=== PATIENT | male | born 1995 | race Caucasian/White ===

== ENCOUNTER 2016-12-05 17:20 | Emergency (ER) | payer OTHER ==
[~2016-12-05] VITALS: Ht 188 cm; Wt 72.6 kg
[2016-12-05 17:20] VITALS: BP_SYST 142
[~2016-12-05 17:20] MED LIST: STRATTERA PO
[2016-12-05] MEDS ORDERED: NACL 0.9% 1,000 ML IV ONE (17:38)
[2016-12-05] MEDS ORDERED: KETOROLAC TROMETHAMINE 30 MG VIAL IVP ONE (17:45)
[2016-12-05] MEDS ORDERED: PROMETHAZINE HCL 25 MG/ML AMP IVP ONE ×2 (17:45→19:45)
[2016-12-05 17:59] LABS: BASOPHILS # (AUTO) 0.1 K/uL (0.0-0.2); BASOPHILS % (AUTO) 0.8 % (0.0-2.0); EOSINOPHILS % (AUTO) 0.1 % (0.0-4.0); HEMATOCRIT 50.2 % (36-54); HEMOGLOBIN 16.6 g/dL (14.0-18.0); LYMPHOCYTES # (AUTO) 0.9 K/uL (1.0-5.5); LYMPHOCYTES % (AUTO) 7.7 % (20.5-51.5); MEAN CORPUSCULAR HEMOGLOBIN 30 pg (27-31); MEAN CORPUSCULAR HGB CONC 33 % (32-36); MEAN CORPUSCULAR VOLUME 92 fL (79.0-98.0); MONOCYTES # (AUTO) 0.7 K/uL (0.0-1.0); MONOCYTES % (AUTO) 5.8 % (1.7-9.3); NEUTROPHILS # (AUTO) 10.4 K/uL (1.8-7.7); NEUTROPHILS % (AUTO) 85.6 % (40.0-70.0); PLATELET COUNT (AUTO) 258 K/uL (130-430); RED BLOOD CELL COUNT(AUTO) 5.49 MIL/uL (4.2-6.2); RED CELL DISTRIBUTION WIDTH 12.2 % (9.0-15.0); WHITE BLOOD COUNT (AUTO) 12.1 K/uL (4.5-11.0)
[2016-12-05 18:04] LABS: CALCIUM 9.6 mg/dL (8.4-11.0); CREATININE 1.09 mg/dL (0.55-1.30); POTASSIUM 3.6 mmol/L (3.5-5.1)
[2016-12-05 18:08] LABS: ALBUMIN 4.6 g/dL (3.4-4.8); TOTAL BILIRUBIN 0.9 mg/dL (0.0-1.0)
[2016-12-05] MEDS ORDERED: ONDANSETRON HCL 4 MG/2 ML VIAL IVP ONE (18:45)
[2016-12-05] MEDS ORDERED: fentaNYL CITRATE/PF 100 MCG/2 ML AMP IVP ONE (18:45)
[2016-12-05] MEDS ORDERED: ONDANSETRON HCL 4 MG/2 ML VIAL ONE (19:02)
[2016-12-05 19:40] VITALS: BP_SYST 138
[2016-12-06] MEDS ORDERED: ONDA4TAB22 PO (16:40)
== END 2016-12-05 19:40 | disposition home or self-care (01) ==
LOC: SED 17:20
DX: R10.11 Right upper quadrant pain (principal); R11.2 Nausea with vomiting, unspecified; Z90.49 Acquired absence of other specified parts of digestive tract
CPT/HCPCS: 36415; 76700; 80053; 83690; 85025; 96361; 96374; 96375; 96376; 99285; J1885; J2405; J2550; J3010; J7030

== ENCOUNTER 2016-12-06 12:22 | Inpatient (IN) | payer OTHER ==
[~2016-12-06] VITALS: Ht 188 cm; Wt 78.5 kg
[2016-12-06 12:56] VITALS: BP_SYST 136
[2016-12-06 13:25] LABS: BASOPHILS # (AUTO) 0.1 K/uL (0.0-0.2); EOSINOPHILS % (AUTO) 0.3 % (0.0-4.0); HEMATOCRIT 49.3 % (36-54); HEMOGLOBIN 16.1 g/dL (14.0-18.0); LYMPHOCYTES # (AUTO) 1.1 K/uL (1.0-5.5); LYMPHOCYTES % (AUTO) 7.2 % (20.5-51.5); MEAN CORPUSCULAR HEMOGLOBIN 30 pg (27-31); MEAN CORPUSCULAR HGB CONC 33 % (32-36); MEAN CORPUSCULAR VOLUME 93 fL (79.0-98.0); MONOCYTES # (AUTO) 0.7 K/uL (0.0-1.0); MONOCYTES % (AUTO) 4.9 % (1.7-9.3); NEUTROPHILS # (AUTO) 12.9 K/uL (1.8-7.7); NEUTROPHILS % (AUTO) 86.6 % (40.0-70.0); PLATELET COUNT (AUTO) 217 K/uL (130-430); RED BLOOD CELL COUNT(AUTO) 5.32 MIL/uL (4.2-6.2); RED CELL DISTRIBUTION WIDTH 12.5 % (9.0-15.0); WHITE BLOOD COUNT (AUTO) 14.8 K/uL (4.5-11.0)
[2016-12-06 13:43] LABS: CALCIUM 9.2 mg/dL (8.4-11.0); CREATININE 1.26 mg/dL (0.55-1.30); POTASSIUM 3.8 mmol/L (3.5-5.1)
[2016-12-06 13:51] LABS: ALBUMIN 4.1 g/dL (3.4-4.8); TOTAL BILIRUBIN 0.9 mg/dL (0.0-1.0)
[2016-12-06] MEDS ORDERED: NACL 0.9% 1,000 ML IV ONE (14:02)
[2016-12-06] MEDS ORDERED: DIPHENHYDRAMINE INJ 50 MG/ML VIAL IVP ONE (14:15)
[2016-12-06 15:12] LABS: BILIRUBIN,URINE NEGATIVE (NEGATIVE); BLOOD, URINE NEGATIVE (NEGATIVE); CLARITY/URINE CLEAR (CLEAR); COLOR,URINE YELLOW (YELLOW); GLUCOSE,URINE NEGATIVE (NEGATIVE); KETONES,URINE 2+ (NEGATIVE); LEUKOCYTE ESTERASE ,URINE NEGATIVE (NEGATIVE); NITRITE, URINE NEGATIVE (NEGATIVE); PROTEIN URINE NEGATIVE (NEGATIVE); UROBILINOGEN,URINE 0.2 (0.2-1.0)
[2016-12-06 15:22] LABS: BARBITURATE, URINE NEGATIVE (NEG <=200); BENZODIAZEPINE, URINE NEGATIVE (NEG <=150); CANNABINOID, URINE POSITIVE (NEG <=50); COCAINE, URINE NEGATIVE (NEG <=150); METHAMPHETAMINES SCREEN,URINE NEGATIVE (NEG <=500); OPIATE, URINE NEGATIVE (NEG <=100); PHENCYCLIDINE SCREEN,URINE NEGATIVE (NEG <=25); UR TRICYCLIC ANTIDEPRESSANTS NEGATIVE (NEG <=300); URINE AMPHETAMINE NEGATIVE (NEG <=500); URINE METHADONE NEGATIVE (NEG <=200); URINE OXYCODONE SCREEN NEGATIVE (NEG <=100); URINE PROPOXYPHENE SCREEN NEGATIVE (NEG <=300)
[2016-12-06] MEDS ORDERED: ONDANSETRON HCL 4 MG/2 ML VIAL IM PRN (16:30)
[2016-12-06] MEDS ORDERED: ONDA4TAB22 PO (16:40)
[2016-12-06 17:25] VITALS: BP_SYST 122
[2016-12-06] MEDS ORDERED: ONDANSETRON HCL 4 MG/2 ML VIAL IVP PRN (17:30)
[2016-12-06 19:15] VITALS: BP_SYST 125
[2016-12-07] MEDS ORDERED: DIPHENHYDRAMINE HCL 25 MG CAPSULE PO ONE
[2016-12-07 00:27] VITALS: BP_SYST 121
[2016-12-07] MEDS: HYDROcodone/ACETAMIN 5-325 MG TAB (NORCO/ VICODIN) PO PRN ×2 (02:01→21:51)
[2016-12-07] MEDS ORDERED: NACL 0.9% 1,000 ML IV SCH (02:30)
[2016-12-07 03:46] VITALS: BP_SYST 117
[2016-12-07 08:00] VITALS: BP_SYST 125
[2016-12-07 08:23] LABS: BASOPHILS # (AUTO) 0.1 K/uL (0.0-0.2); BASOPHILS % (AUTO) 0.8 % (0.0-2.0); EOSINOPHILS # (AUTO) 0.1 K/uL (0.0-0.4); EOSINOPHILS % (AUTO) 1.1 % (0.0-4.0); HEMOGLOBIN 14.9 g/dL (14.0-18.0); LYMPHOCYTES # (AUTO) 2.1 K/uL (1.0-5.5); LYMPHOCYTES % (AUTO) 22.5 % (20.5-51.5); MEAN CORPUSCULAR HEMOGLOBIN 31 pg (27-31); MEAN CORPUSCULAR HGB CONC 34 % (32-36); MEAN CORPUSCULAR VOLUME 93 fL (79.0-98.0); MONOCYTES # (AUTO) 0.9 K/uL (0.0-1.0); NEUTROPHILS # (AUTO) 6.3 K/uL (1.8-7.7); NEUTROPHILS % (AUTO) 66.6 % (40.0-70.0); PLATELET COUNT (AUTO) 196 K/uL (130-430); RED BLOOD CELL COUNT(AUTO) 4.76 MIL/uL (4.2-6.2); WHITE BLOOD COUNT (AUTO) 9.5 K/uL (4.5-11.0)
[2016-12-07] MEDS: PANTOPRAZOLE SODIUM 40 MG/VIAL (PROTONIX) IVP SCH (09:09)
[2016-12-07 16:02] VITALS: BP_SYST 125
[2016-12-07 19:50] VITALS: BP_SYST 131
[2016-12-07] MEDS ORDERED: HYDROcodone/ACETAMIN 5-325 MG TAB (NORCO/ VICODIN) ONE (22:00)
[2016-12-07] MEDS: NACL 0.9% 1,000 ML IV SCH (22:42)
[2016-12-08] VITALS (12 sets, daily range): BP systolic 104–127
[2016-12-08] MEDS ORDERED: MEPERIDINE HCL/PF 100 MG/ML AMP ONE (06:42)
[2016-12-08] MEDS ORDERED: DIPHENHYDRAMINE INJ 50 MG/ML VIAL ONE (06:42)
[2016-12-08] MEDS ORDERED: MIDAZOLAM HCL 5 MG/5 ML VIAL ONE (06:43)
[2016-12-08] MEDS: PANTOPRAZOLE SODIUM 40 MG/VIAL (PROTONIX) IVP SCH (10:50)
[2016-12-08] MEDS: NACL 0.9% 1,000 ML IV SCH ×2 (10:51→11:51)
[2016-12-08] MEDS: HYDROcodone/ACETAMIN 5-325 MG TAB (NORCO/ VICODIN) PO PRN (10:55)
[2016-12-08] MEDS ORDERED: PRO40 PO (16:36)
== END 2016-12-08 17:15 | disposition home or self-care (01) | DRG 392 ==
LOC: SED 12:22 → SMU 16:35 → UNDODISIN 12-07 13:30 → SMU 12-08 13:06
PROC: 0DB68ZX Excision of Stomach, Via Natural or Artificial Opening Endoscopic, Diagnostic (ICD-10-PCS; 2016-12-08)
PROC: 0DB58ZX Excision of Esophagus, Via Natural or Artificial Opening Endoscopic, Diagnostic (ICD-10-PCS; 2016-12-08)
PROC: 0DB98ZX Excision of Duodenum, Via Natural or Artificial Opening Endoscopic, Diagnostic (ICD-10-PCS; principal; 2016-12-08 07:00)
DX: K21.0 Gastro-esophageal reflux disease with esophagitis (principal); F12.90 Cannabis use, unspecified, uncomplicated; K29.70 Gastritis, unspecified, without bleeding; Z79.899 Other long term (current) drug therapy; Z71.51 Drug abuse counseling and surveillance of drug abuser
CPT/HCPCS: 36415; 43239; 74000-TC; 74020-TC; 80053; 80307; 81003; 83605; 83690-TC; 85025; 87081; 88305; 88312; 88313; 96361; 96374; 99285; C9113; J1200; J2175; J2250; J7030; Q0163

== ENCOUNTER 2017-05-15 12:04 | Emergency (ER) | payer OTHER ==
[~2017-05-15] VITALS: Ht 177.8 cm; Wt 79.4 kg
[~2017-05-15 12:04] MED LIST changes: +ONDA4TAB22 PO; +PRO40 PO; -STRATTERA PO
[2017-05-15 12:12] VITALS: BP_SYST 166
[2017-05-15] MEDS ORDERED: LIDOCAINE VISCOUS 2%, 15 ML UDC MM ONE (12:30)
[2017-05-15] MEDS ORDERED: NACL 0.9% 1,000 ML IV ONE (12:30)
[2017-05-15] MEDS ORDERED: MAG-AL HYDROX/SIMETH 30 ML UDC PO ONE (12:30)
[2017-05-15] MEDS ORDERED: BELLADONNA ALKALOIDS/PHENOBARB 5 ML UDC PO ONE (12:30)
[2017-05-15] MEDS ORDERED: ONDANSETRON HCL 4 MG/2 ML VIAL IVP ONE (12:30)
[2017-05-15] MEDS ORDERED: LIDOCAINE VISCOUS 2%, 15 ML UDC ONE (12:33)
[2017-05-15 12:43] LABS: BASOPHILS # (AUTO) 0.1 K/uL (0.0-0.2); BASOPHILS % (AUTO) 0.6 % (0.0-2.0); EOSINOPHILS % (AUTO) 0.2 % (0.0-4.0); HEMATOCRIT 51.4 % (36-54); HEMOGLOBIN 17.5 g/dL (14.0-18.0); LYMPHOCYTES # (AUTO) 1.3 K/uL (1.0-5.5); LYMPHOCYTES % (AUTO) 8.2 % (20.5-51.5); MEAN CORPUSCULAR HEMOGLOBIN 31 pg (27-31); MEAN CORPUSCULAR HGB CONC 34 % (32-36); MEAN CORPUSCULAR VOLUME 91 fL (79.0-98.0); MONOCYTES # (AUTO) 1.4 K/uL (0.0-1.0); MONOCYTES % (AUTO) 8.4 % (1.7-9.3); NEUTROPHILS # (AUTO) 13.6 K/uL (1.8-7.7); NEUTROPHILS % (AUTO) 82.6 % (40.0-70.0); PLATELET COUNT (AUTO) 265 K/uL (130-430); RED BLOOD CELL COUNT(AUTO) 5.63 MIL/uL (4.2-6.2); RED CELL DISTRIBUTION WIDTH 12.1 % (9.0-15.0); WHITE BLOOD COUNT (AUTO) 16.4 K/uL (4.5-11.0)
[2017-05-15 12:52] LABS: CALCIUM 10.2 mg/dL (8.4-11.0); CREATININE 1.22 mg/dL (0.55-1.30); POTASSIUM 3.8 mmol/L (3.5-5.1)
[2017-05-15 12:56] LABS: ALBUMIN 4.9 g/dL (3.4-4.8); TOTAL BILIRUBIN 0.9 mg/dL (0.0-1.0)
[2017-05-15] MEDS ORDERED: METOCLOPRAMIDE HCL 10 MG/2 ML VIAL IVP ONE (13:00)
[2017-05-15] MEDS ORDERED: KETOROLAC TROMETHAMINE 30 MG VIAL IVP ONE (13:00)
[2017-05-15 13:46] VITALS: BP_SYST 153
[2017-05-15] MEDS ORDERED: AMIT10TA6 PO (14:33)
== END 2017-05-15 13:46 | disposition home or self-care (01) ==
LOC: SED 12:04
DX: R11.2 Nausea with vomiting, unspecified (principal); R10.84 Generalized abdominal pain; Z90.49 Acquired absence of other specified parts of digestive tract
CPT/HCPCS: 36415; 80053; 83690; 85025; 93005; 96361; 96374; 96375; 99285; J1885; J2001; J2405; J2765; J7030

== ENCOUNTER 2017-05-15 14:14 | Inpatient (IN) | payer OTHER ==
[~2017-05-15] VITALS: Ht 188 cm; Wt 81.6 kg
[2017-05-15 14:23] VITALS: BP_SYST 162
--- NOTE | 2017-05-15 14:25 | NUR ---
Pt placed in bed 4, report endorsed to Amanda CENTENO
--- NOTE | 2017-05-15 14:27 | NUR ---
Pt returned per doctor's request if pt did not feel better. Per patient, after discharge, he had thrown up all the way home. Pt states he "has been throwing up like this for 5 years and doesn't know what is wrong." Pt also states he "had a drink of water at 2pm and threw up at 2:25pm." No other injuries/complaints per patient or noted. Mother at bedside.
[2017-05-15] MEDS ORDERED: NACL 0.9% 1,000 ML IV ONE (14:31)
[2017-05-15] MEDS ORDERED: AMIT10TA6 PO (14:33)
--- NOTE | 2017-05-15 14:34 | NUR ---
Dr. Bernabe speaking with Dr. Piper in ER regarding admission
[2017-05-15] MEDS ORDERED: METOCLOPRAMIDE HCL 10 MG/2 ML VIAL IVP ONE (14:45)
[2017-05-15] MEDS ORDERED: LORazepam 2 MG/ML VIAL (FOR ER USE) IVP ONE (14:45)
--- NOTE | 2017-05-15 14:55 | NUR ---
Patient will be admitted to care of Dr. Piper. Admitted to med/surg unit. Will go to room 100-B. Belongings list completed. Summary report printed. Report will be given at bedside. Transfer to [facility]. IV present no sign or symptom of infiltration.
--- NOTE | 2017-05-15 15:04 | NUR ---
ADMISSION NOTE Received patient from ER via mariam, received report from LUANNE CENTENO. Patient admitted with diagnosis of INTRACTABLE VOMITING. Patient oriented to hospital routine, call light, toileting and safety-patient verbalized understanding.
[2017-05-15 15:22] VITALS: BP_SYST 130
--- NOTE | 2017-05-15 15:30 | NUR ---
initial notes rec patient asleep but arousable to stimuli. ivf was infusing on the l ac. no infiltration noted. accompanied by mom at bedside.resp easy and unlabored. bed in low position and side rails up and locked. call light within reached and knows when to call for assistance. denies any pain or vomiting at this time. will continue to monitor patient.
[2017-05-15] MEDS ORDERED: FLU VACC QS 2017-18(36MOS+)/PF 0.5 ML/SYR SYRINGE I.M. PRN (15:45)
[2017-05-15] MEDS ORDERED: MORPHINE 4 MG/ML INJ. SYRINGE IVP PRN (17:45)
[2017-05-15] MEDS ORDERED: METOCLOPRAMIDE HCL 10 MG/2 ML VIAL IVP PRN (17:45)
[2017-05-15] MEDS ORDERED: ONDANSETRON HCL 4 MG/2 ML VIAL IVP PRN (17:45)
[2017-05-15] MEDS ORDERED: ACETAMINOPHEN 325 MG TABLET PO PRN (17:45)
--- NOTE | 2017-05-15 17:47 | NUR ---
CONSULTATION CALLED REASON FOR CONSULTATION:NAUSEA/VOMITING WAS CONSULT CALLED?Y PERSON WHO WAS NOTIFIED:ASIF CONSULTING PHYSICIAN:SEAN ORTIZ RECREATION CLERK SPECIALTY:GI RECREATION CLERK PHONE NUMBER:[phone] ORDERING PHYSICIAN:ARELIS RUCKER
--- NOTE | 2017-05-15 18:31 | NUR ---
closing notes pt continue to sleep soundly. mom at bedside. no co/ pain offered. bedin low position and side rails up and locked. call light within reached.
--- NOTE | 2017-05-15 19:10 | NUR ---
Initial note Received patient awake, alert, and oriented with mother at bedside. No s/s of distress noted. Assisted patient to bathroom and safely back to bed. Denies needs at this time. Plan of care reviewed, patient verbalized understanding. Bed is down, locked, side rails up x2, call light within reach. Will continue to monitor.
[2017-05-15 20:00] VITALS: BP_SYST 119
[2017-05-15] MEDS: D5NS 1,000 ML IV SCH (20:27)
--- NOTE | 2017-05-15 21:00 | NUR ---
Rounds Patient is resting in bed with mother at bedside. No s/s of distress noted. Denies needs at this time. Bed is down, locked, side rails up x2, call light within reach. Will continue to monitor.
[2017-05-15] MEDS: MORPHINE 2 MG/ML INJ. SYRINGE IVP PRN (21:40)
--- NOTE | 2017-05-15 23:00 | NUR ---
Rounds Patient is sleeping quietly in bed. No s/s of distress noted. Bed is down, locked, side rails up x2. Will continue to monitor.
[2017-05-15 23:29] VITALS: BP_SYST 100
--- NOTE | 2017-05-16 01:00 | NUR ---
Rounds Patient is sleeping in bed. No s/s of distress noted at this time. Bed is down, locked, side rails up x2, call light within reach. Will continue to monitor.
[2017-05-16] MEDS: MORPHINE 2 MG/ML INJ. SYRINGE IVP PRN (02:48)
--- NOTE | 2017-05-16 03:00 | NUR ---
Rounds Patient is awake and alert, resting in bed. Patient c/o abdominal pain, medicated with morphine. Patient instructed to call for any further needs. Bed is down, locked, side rails up x2, call light within reach. Will continue to monitor.
[2017-05-16] MEDS: D5NS 1,000 ML IV SCH (05:01)
--- NOTE | 2017-05-16 05:10 | NUR ---
Rounds Patient is resting in bed. No s/s of distress noted. C/o of dry mouth. Performed oral care. Patient states "my mouth feels so much better". Denies needs at this time. Bed is down, locked, side rails up x2, call light within reach. Will continue to monitor.
--- NOTE | 2017-05-16 07:03 | NUR ---
Closing note Patient is resting quietly in bed. No s/s of distress noted. IV is infusing well at prescribed rate. All needs met and anticipated by noc nurses. Bed is locked, down, side rails up x2, call light within reach. Will endorse to day shift nurse.
[2017-05-16 07:05] LABS: CALCIUM 8.4 mg/dL (8.4-11.0); CREATININE 1.27 mg/dL (0.55-1.30)
[2017-05-16 07:06] LABS: BASOPHILS % (AUTO) 0.4 % (0.0-2.0); EOSINOPHILS # (AUTO) 0.1 K/uL (0.0-0.4); EOSINOPHILS % (AUTO) 1.3 % (0.0-4.0); HEMATOCRIT 44.3 % (36-54); LYMPHOCYTES # (AUTO) 2.1 K/uL (1.0-5.5); LYMPHOCYTES % (AUTO) 29.5 % (20.5-51.5); MEAN CORPUSCULAR HEMOGLOBIN 31 pg (27-31); MEAN CORPUSCULAR HGB CONC 34 % (32-36); MEAN CORPUSCULAR VOLUME 92 fL (79.0-98.0); MONOCYTES % (AUTO) 13.6 % (1.7-9.3); NEUTROPHILS # (AUTO) 3.9 K/uL (1.8-7.7); NEUTROPHILS % (AUTO) 55.2 % (40.0-70.0); PLATELET COUNT (AUTO) 180 K/uL (130-430); RED BLOOD CELL COUNT(AUTO) 4.81 MIL/uL (4.2-6.2); RED CELL DISTRIBUTION WIDTH 11.9 % (9.0-15.0); WHITE BLOOD COUNT (AUTO) 7.1 K/uL (4.5-11.0)
[2017-05-16 07:12] LABS: ALBUMIN 3.2 g/dL (3.4-4.8); TOTAL BILIRUBIN 0.6 mg/dL (0.0-1.0)
--- NOTE | 2017-05-16 07:40 | NUR ---
PATIENT IS ASLEEP, BREATHING EVEN AND UNLABORED. MOTHER AT BEDSIDE. IV ON LEFT FA, #22, WITH D5 NS RUNNING AT 100ML/HR, SITE INTACT AND PATENT. POC IS EXPLAINED, CALL LIGHT IN PLACE, BED LOCKED AT THE LOWEST POSITION, WILL CONTINUE TO MONITOR.
--- NOTE | 2017-05-16 08:20 | NUR ---
Patient asleep, and refuses vital signs.
--- NOTE | 2017-05-16 10:25 | NUR ---
patient is awake, a/ox4, and is more pleasant. POC is explained. Family and patient verbalized understanding.
[2017-05-16 12:00] VITALS: BP_SYST 119
--- NOTE | 2017-05-16 12:17 | NUR ---
patient is seen chatting with his mom.
--- NOTE | 2017-05-16 14:20 | NUR ---
Dr. Arteaga has seen patient, and placed patient on regular diet. Patient may go if he tolerates without discomfort.
[2017-05-16 15:35] VITALS: BP_SYST 116
--- NOTE | 2017-05-16 17:28 | NUR ---
MAIL HANDLER ASSISTANT faxed pt's discharge order to PA/HCP/Reid Driver, Maria Teresa Park ([phone]).
== END 2017-05-16 15:55 | disposition home or self-care (01) | DRG 392 ==
LOC: SED 14:14 → SMU 14:34
PROVIDERS: ADMIT Internal Medicine Hospice and Palliative Medicine; ATTEND Internal Medicine Hospice and Palliative Medicine
DX: R11.2 Nausea with vomiting, unspecified (principal); Z79.899 Other long term (current) drug therapy; Z90.49 Acquired absence of other specified parts of digestive tract
CPT/HCPCS: 36415; 80053; 85025; 96361; 96374; 96375; 99285; J2060; J2270; J2405; J2765; J7030; J7042

== ENCOUNTER 2017-06-06 11:37 | Emergency (ER) | payer OTHER ==
[~2017-06-06] VITALS: Ht 185.4 cm; Wt 83.9 kg
[2017-06-06 11:37] VITALS: BP_SYST 160
[~2017-06-06 11:37] MED LIST changes: +AMIT10TA6 PO
[2017-06-06] MEDS ORDERED: NACL 0.9% 1,000 ML IV ONE (11:44)
[2017-06-06] MEDS ORDERED: ONDANSETRON HCL 4 MG/2 ML VIAL IVP ONE (11:45)
[2017-06-06] MEDS ORDERED: METOCLOPRAMIDE HCL 10 MG/2 ML VIAL IVP ONE ×3 (12:00→13:45)
[2017-06-06 12:34] LABS: HEMATOCRIT 48.9 % (36-54); HEMOGLOBIN 16.2 g/dL (14.0-18.0); MEAN CORPUSCULAR HEMOGLOBIN 31 pg (27-31); MEAN CORPUSCULAR HGB CONC 33 % (32-36); MEAN CORPUSCULAR VOLUME 93 fL (79.0-98.0); PLATELET COUNT (AUTO) 298 K/uL (130-430); RED BLOOD CELL COUNT(AUTO) 5.26 MIL/uL (4.2-6.2); RED CELL DISTRIBUTION WIDTH 11.9 % (9.0-15.0); WHITE BLOOD COUNT (AUTO) 19.1 K/uL (4.5-11.0)
[2017-06-06 12:42] LABS: CALCIUM 9.4 mg/dL (8.4-11.0); CREATININE 1.09 mg/dL (0.55-1.30); POTASSIUM 3.7 mmol/L (3.5-5.1)
[2017-06-06 12:45] LABS: PROTHROMBIN TIME 10.5 SECS (9.5-12.5)
[2017-06-06 12:46] LABS: ALBUMIN 4.3 g/dL (3.4-4.8); TOTAL BILIRUBIN 0.3 mg/dL (0.0-1.0)
[2017-06-06 13:15] LABS: BASOPHILS % (MANUAL) 0 % (0-2); EOSINOPHILS % (MANUAL) 0 % (0-7); LYMPHOCYTES % (MANUAL) 5 % (20-46); MONOCYTES % (MANUAL) 3 % (0-11)
[2017-06-06] MEDS ORDERED: LORazepam 2 MG/ML VIAL (FOR ER USE) IVP ONE (13:45)
[2017-06-06 13:58] LABS: BARBITURATE, URINE NEGATIVE (NEG <=200); BENZODIAZEPINE, URINE NEGATIVE (NEG <=150); CANNABINOID, URINE POSITIVE (NEG <=50); COCAINE, URINE NEGATIVE (NEG <=150); METHAMPHETAMINES SCREEN,URINE NEGATIVE (NEG <=500); OPIATE, URINE NEGATIVE (NEG <=100); PHENCYCLIDINE SCREEN,URINE NEGATIVE (NEG <=25); UR TRICYCLIC ANTIDEPRESSANTS NEGATIVE (NEG <=300); URINE AMPHETAMINE NEGATIVE (NEG <=500); URINE METHADONE NEGATIVE (NEG <=200); URINE OXYCODONE SCREEN NEGATIVE (NEG <=100); URINE PROPOXYPHENE SCREEN NEGATIVE (NEG <=300)
[2017-06-06 14:20] LABS: BILIRUBIN,URINE NEGATIVE (NEGATIVE); BLOOD, URINE NEGATIVE (NEGATIVE); CLARITY/URINE CLOUDY (CLEAR); COLOR,URINE YELLOW (YELLOW); GLUCOSE,URINE NEGATIVE (NEGATIVE); KETONES,URINE 1+ (NEGATIVE); LEUKOCYTE ESTERASE ,URINE NEGATIVE (NEGATIVE); NITRITE, URINE NEGATIVE (NEGATIVE); PH,URINE 8.5 (5.0-8.0); PROTEIN URINE NEGATIVE (NEGATIVE); UROBILINOGEN,URINE 0.2 (0.2-1.0)
[2017-06-06 14:33] LABS: BACTERIA,URINE FEW /HPF (None Seen); RBC,URINE 0-3 /HPF (0-3); WBC,URINE 0-3 /HPF (0-3)
[2017-06-06 14:34] LABS: URINE AMORPHOUS PHOSPHATES 4+ /HPF (None Seen)
[2017-06-06 14:45] VITALS: BP_SYST 140
== END 2017-06-06 14:44 | disposition home or self-care (01) ==
LOC: SED 11:37
DX: R11.2 Nausea with vomiting, unspecified (principal); R10.13 Epigastric pain; Z90.49 Acquired absence of other specified parts of digestive tract; Z79.899 Other long term (current) drug therapy
CPT/HCPCS: 36415; 80053; 80307; 81000; 82150; 83690; 85007; 85027; 85610; 85730; 96361; 96374; 96375; 96376; 99284; J2060; J2405; J2765; J7030

== ENCOUNTER 2017-09-13 09:09 | Emergency (ER) | payer OTHER ==
[~2017-09-13] VITALS: Ht 185.4 cm; Wt 77.1 kg
[2017-09-13 09:15] VITALS: BP_SYST 160
[2017-09-13] MEDS ORDERED: NACL 0.9% 1,000 ML IV ONE (09:22)
[2017-09-13] MEDS ORDERED: ONDANSETRON HCL 4 MG/2 ML VIAL IVP ONE ×2 (09:30→12:00)
[2017-09-13] MEDS ORDERED: MORPHINE 4 MG/ML INJ. SYRINGE IVP ONE ×2 (09:30→13:30)
[2017-09-13] MEDS ORDERED: ONDANSETRON HCL 4 MG/2 ML VIAL ONE ×2 (09:39→12:40)
[2017-09-13] MEDS ORDERED: MORPHINE 4 MG/ML INJ. SYRINGE ONE ×2 (09:40→13:36)
[2017-09-13 10:06] LABS: BASOPHILS # (AUTO) 0.1 K/uL (0.0-0.2); BASOPHILS % (AUTO) 0.5 % (0.0-2.0); EOSINOPHILS # (AUTO) 0.1 K/uL (0.0-0.4); EOSINOPHILS % (AUTO) 0.4 % (0.0-4.0); HEMATOCRIT 49.2 % (36-54); HEMOGLOBIN 17.3 g/dL (14.0-18.0); LYMPHOCYTES # (AUTO) 1.2 K/uL (1.0-5.5); LYMPHOCYTES % (AUTO) 7.1 % (20.5-51.5); MEAN CORPUSCULAR HEMOGLOBIN 32 pg (27-31); MEAN CORPUSCULAR HGB CONC 35 % (32-36); MEAN CORPUSCULAR VOLUME 92 fL (79.0-98.0); MONOCYTES # (AUTO) 1.1 K/uL (0.0-1.0); MONOCYTES % (AUTO) 6.1 % (1.7-9.3); NEUTROPHILS # (AUTO) 14.9 K/uL (1.8-7.7); NEUTROPHILS % (AUTO) 85.9 % (40.0-70.0); PLATELET COUNT (AUTO) 249 K/uL (130-430); RED BLOOD CELL COUNT(AUTO) 5.33 MIL/uL (4.2-6.2); RED CELL DISTRIBUTION WIDTH 12.1 % (9.0-15.0); WHITE BLOOD COUNT (AUTO) 17.4 K/uL (4.8-10.8)
[2017-09-13 10:09] LABS: CALCIUM 9.2 mg/dL (8.4-11.0); CREATININE 1.14 mg/dL (0.55-1.30); POTASSIUM 3.5 mmol/L (3.5-5.1)
[2017-09-13 10:13] LABS: INR 1.1 (0.80-1.20); PROTHROMBIN TIME 11.1 SECS (9.5-12.5)
[2017-09-13 10:14] LABS: ALBUMIN 4.5 g/dL (3.4-4.8); TOTAL BILIRUBIN 0.9 mg/dL (0.0-1.0)
--- NOTE | 2017-09-13 11:15 | NUR ---
pt resting comfortably in bed; family at bedside; received Morphine and Zofran earlier; reports improved symptoms; 2/10 nausea and 6/10 pain to throat region; does not require further intervention at this time; will continue to monitor
--- NOTE | 2017-09-13 12:35 | NUR ---
urine sample collection sent to lab
[2017-09-13 12:50] LABS: BILIRUBIN,URINE NEGATIVE (NEGATIVE); BLOOD, URINE NEGATIVE (NEGATIVE); CLARITY/URINE SL HAZY (CLEAR); COLOR,URINE YELLOW (YELLOW); GLUCOSE,URINE NEGATIVE (NEGATIVE); KETONES,URINE 2+ (NEGATIVE); LEUKOCYTE ESTERASE ,URINE NEGATIVE (NEGATIVE); NITRITE, URINE NEGATIVE (NEGATIVE); PROTEIN URINE NEGATIVE (NEGATIVE)
--- NOTE | 2017-09-13 12:51 | NUR ---
10/13 throat pain; request intervention; will make MD aware; Zofran 8mg IVP given by JACOBO Rosa Charge; will continue to monitor and reassess
--- NOTE | 2017-09-13 13:03 | NUR ---
endorsed pt care to JACOBO Patel; pt resting in bed; family at bedside; pending pain meds
--- NOTE | 2017-09-13 15:45 | NUR ---
Patient resting quietly in no acute distress. Awaiting dispo, will continue to observe and assess.
[2017-09-13 16:25] VITALS: BP_SYST 145
--- NOTE | 2017-09-13 16:25 | NUR ---
Patient given written and verbal discharge instructions and verbalizes understanding. ER MD discussed with patient the results and treatment provided. Patient in stable condition. ID arm band removed. IV catheter removed intact and dressing applied, no active bleeding. Rx of Phenergan, Ativan, fleet enema, and zofran given. Patient educated on pain management and to follow up with PMD. Pain Scale 3. Dr. Kang aware, medications were given here and prescription given. Opportunity for questions provided and answered. Medication side effect fact sheet provided.
== END 2017-09-13 16:25 | disposition home or self-care (01) ==
LOC: SED 09:09
DX: G43.A0 Cyclical vomiting, in migraine, not intractable (principal); K59.00 Constipation, unspecified; F12.10 Cannabis abuse, uncomplicated
CPT/HCPCS: 36415; 74176; 80053; 81003; 82150; 83605; 83690; 85025; 85610; 85730; 87040; 96361; 96365; 96375; 96376; 99285; J0696; J2270; J2405; J7030; J7060

== ENCOUNTER 2017-10-19 13:30 | Inpatient (IN) | payer OTHER ==
[~2017-10-19] VITALS: Ht 185.4 cm; Wt 73.0 kg
[2017-10-19 13:30] VITALS: BP_SYST 179
[2017-10-19] MEDS ORDERED: NACL 0.9% 1,000 ML IV ONE ×3 (13:42→14:45)
[2017-10-19] MEDS ORDERED: LORazepam 2 MG/ML VIAL (FOR ER USE) IVP ONE (13:45)
[2017-10-19] MEDS ORDERED: ONDANSETRON HCL 4 MG/2 ML VIAL IVP ONE (13:45)
[2017-10-19 14:03] LABS: BASOPHILS # (AUTO) 0.1 K/uL (0.0-0.2); BASOPHILS % (AUTO) 1.5 % (0.0-2.0); EOSINOPHILS # (AUTO) 0.1 K/uL (0.0-0.4); EOSINOPHILS % (AUTO) 0.7 % (0.0-4.0); HEMATOCRIT 46.5 % (36-54); HEMOGLOBIN 16.5 g/dL (14.0-18.0); LYMPHOCYTES # (AUTO) 1.6 K/uL (1.0-5.5); MEAN CORPUSCULAR HEMOGLOBIN 32 pg (27-31); MEAN CORPUSCULAR HGB CONC 35 % (32-36); MEAN CORPUSCULAR VOLUME 92 fL (79.0-98.0); MONOCYTES % (AUTO) 10.5 % (1.7-9.3); NEUTROPHILS # (AUTO) 6.9 K/uL (1.8-7.7); NEUTROPHILS % (AUTO) 70.3 % (40.0-70.0); PLATELET COUNT (AUTO) 227 K/uL (130-430); RED BLOOD CELL COUNT(AUTO) 5.08 MIL/uL (4.2-6.2); RED CELL DISTRIBUTION WIDTH 11.5 % (9.0-15.0); WHITE BLOOD COUNT (AUTO) 9.7 K/uL (4.8-10.8)
[2017-10-19 14:19] LABS: CALCIUM 9.2 mg/dL (8.4-11.0); CREATININE 1.11 mg/dL (0.55-1.30); POTASSIUM 3.2 mmol/L (3.5-5.1)
[2017-10-19 14:24] LABS: ALBUMIN 4.2 g/dL (3.4-4.8); TOTAL BILIRUBIN 0.9 mg/dL (0.0-1.0)
[2017-10-19 14:33] LABS: BILIRUBIN,URINE NEGATIVE (NEGATIVE); BLOOD, URINE NEGATIVE (NEGATIVE); CLARITY/URINE CLOUDY (CLEAR); COLOR,URINE YELLOW (YELLOW); GLUCOSE,URINE NEGATIVE (NEGATIVE); KETONES,URINE 2+ (NEGATIVE); LEUKOCYTE ESTERASE ,URINE NEGATIVE (NEGATIVE); NITRITE, URINE NEGATIVE (NEGATIVE); PROTEIN URINE NEGATIVE (NEGATIVE)
[2017-10-19] MEDS ORDERED: KCL 20 mEq in 100 mL (PREMIX) 100 ML IV ONE (14:45)
[2017-10-19 14:46] LABS: BACTERIA,URINE RARE /HPF (None Seen); RBC,URINE 0-3 /HPF (0-3); WBC,URINE 0-3 /HPF (0-3)
[2017-10-19 14:47] LABS: MUCUS,URINE None Seen /LPF (None Seen); URINE AMORPHOUS PHOSPHATES 2+ /HPF (None Seen)
[2017-10-19 14:48] LABS: BARBITURATE, URINE NEGATIVE (NEG <=200); METHAMPHETAMINES SCREEN,URINE NEGATIVE (NEG <=500); URINE AMPHETAMINE NEGATIVE (NEG <=500); URINE METHADONE NEGATIVE (NEG <=200)
[2017-10-19 14:49] LABS: BENZODIAZEPINE, URINE POSITIVE (NEG <=150); CANNABINOID, URINE POSITIVE (NEG <=50); COCAINE, URINE NEGATIVE (NEG <=150); OPIATE, URINE NEGATIVE (NEG <=100); PHENCYCLIDINE SCREEN,URINE NEGATIVE (NEG <=25); UR TRICYCLIC ANTIDEPRESSANTS NEGATIVE (NEG <=300); URINE OXYCODONE SCREEN NEGATIVE (NEG <=100); URINE PROPOXYPHENE SCREEN NEGATIVE (NEG <=300)
[2017-10-19] MEDS ORDERED: PROMETHAZINE HCL 25 MG/ML AMP IVP ONE (15:00)
[2017-10-19 15:23] VITALS: BP_SYST 174
[2017-10-19] MEDS ORDERED: LORA1TAB PO (15:36)
[2017-10-19] MEDS ORDERED: [UNRECOGNIZED DRUG - CODE] RC (15:36)
[2017-10-19] MEDS ORDERED: MORPHINE 2 MG/ML INJ. SYRINGE IVP PRN (16:15)
[2017-10-19] MEDS: MORPHINE 4 MG/ML INJ. SYRINGE IVP PRN ×2 (16:42→20:43)
[2017-10-19] MEDS: D5NS 1,000 ML IV SCH ×2 (18:37→23:54)
[2017-10-19 20:00] VITALS: BP_SYST 119
[2017-10-19] MEDS: ONDANSETRON HCL 4 MG/2 ML VIAL IVP PRN (20:02)
[2017-10-20] VITALS: BP_SYST 125
[2017-10-20] MEDS: MORPHINE 4 MG/ML INJ. SYRINGE IVP PRN ×5 (00:36→21:11)
[2017-10-20] MEDS: ONDANSETRON HCL 4 MG/2 ML VIAL IVP PRN ×3 (02:10→18:29)
[2017-10-20] MEDS: D5NS 1,000 ML IV SCH ×3 (04:17→22:52)
[2017-10-20 08:00] VITALS: BP_SYST 127
[2017-10-20 09:47] LABS: BASOPHILS # (AUTO) 0.1 K/uL (0.0-0.2); EOSINOPHILS # (AUTO) 0.1 K/uL (0.0-0.4); LYMPHOCYTES # (AUTO) 1.7 K/uL (1.0-5.5); MONOCYTES # (AUTO) 1.1 K/uL (0.0-1.0)
[2017-10-20 09:49] LABS: CALCIUM 9.2 mg/dL (8.4-11.0); CREATININE 1.12 mg/dL (0.55-1.30); POTASSIUM 3.7 mmol/L (3.5-5.1)
[2017-10-20 09:54] LABS: ALBUMIN 4.2 g/dL (3.4-4.8); TOTAL BILIRUBIN 0.7 mg/dL (0.0-1.0)
[2017-10-20 09:59] LABS: BASOPHILS % (AUTO) 0.9 % (0.0-2.0); EOSINOPHILS % (AUTO) 0.8 % (0.0-4.0); HEMATOCRIT 47.8 % (36-54); HEMOGLOBIN 16.3 g/dL (14.0-18.0); LYMPHOCYTES % (AUTO) 18.6 % (20.5-51.5); MEAN CORPUSCULAR HEMOGLOBIN 32 pg (27-31); MEAN CORPUSCULAR HGB CONC 34 % (32-36); MEAN CORPUSCULAR VOLUME 93 fL (79.0-98.0); MONOCYTES % (AUTO) 12.4 % (1.7-9.3); NEUTROPHILS # (AUTO) 6.2 K/uL (1.8-7.7); NEUTROPHILS % (AUTO) 67.3 % (40.0-70.0); PLATELET COUNT (AUTO) 223 K/uL (130-430); RED BLOOD CELL COUNT(AUTO) 5.12 MIL/uL (4.2-6.2); RED CELL DISTRIBUTION WIDTH 11.7 % (9.0-15.0); WHITE BLOOD COUNT (AUTO) 9.2 K/uL (4.8-10.8)
[2017-10-20] MEDS: ACETAMINOPHEN 325 MG TABLET PO PRN ×2 (10:10→17:12)
[2017-10-20 11:21] VITALS: BP_SYST 116
[2017-10-20] MEDS ORDERED: METOCLOPRAMIDE HCL 10 MG/2 ML VIAL IVP SCH (14:00)
[2017-10-20 15:00] VITALS: BP_SYST 128
[2017-10-20] MEDS: LORazepam 2 MG/ML VIAL IVP PRN (19:08)
[2017-10-20 19:48] VITALS: BP_SYST 161
[2017-10-21 01:06] VITALS: BP_SYST 127
[2017-10-21] MEDS: D5NS 1,000 ML IV SCH ×3 (06:58→20:53)
[2017-10-21 08:05] VITALS: BP_SYST 143
[2017-10-21] MEDS: ONDANSETRON HCL 4 MG/2 ML VIAL IVP PRN ×3 (09:03→20:52)
[2017-10-21] MEDS: LORazepam 2 MG/ML VIAL IVP PRN ×3 (09:10→23:45)
[2017-10-21 11:09] LABS: CALCIUM 8.8 mg/dL (8.4-11.0); CREATININE 1.14 mg/dL (0.55-1.30); POTASSIUM 3.4 mmol/L (3.5-5.1)
[2017-10-21] MEDS ORDERED: ONDANSETRON HCL 4 MG/2 ML VIAL IVP ONE (11:45)
[2017-10-21] MEDS ORDERED: ONDANSETRON HCL 4 MG/2 ML VIAL ONE (12:37)
[2017-10-21] MEDS ORDERED: LORazepam 2 MG/ML VIAL IM ONE (13:00)
[2017-10-21] MEDS ORDERED: LORazepam 2 MG/ML VIAL IVP ONE ×2 (13:00)
[2017-10-21] MEDS ORDERED: LORazepam 2 MG/ML VIAL ONE (13:03)
[2017-10-21] MEDS ORDERED: ACETAMINOPHEN 650 MG SUPP.RECT RC PRN (13:15)
[2017-10-21] MEDS ORDERED: ACETAMINOPHEN 650 MG SUPP.RECT RC ONE (13:18)
[2017-10-21 16:30] VITALS: BP_SYST 138
[2017-10-21] MEDS ORDERED: PANTOPRAZOLE SODIUM 40 MG/VIAL (PROTONIX) IVP ONE (17:45)
[2017-10-21 20:00] VITALS: BP_SYST 147
[2017-10-22 00:17] VITALS: BP_SYST 116
[2017-10-22] MEDS: ONDANSETRON HCL 4 MG/2 ML VIAL IVP PRN ×4 (02:48→23:52)
[2017-10-22] MEDS: D5NS 1,000 ML IV SCH ×3 (06:33→23:53)
[2017-10-22] MEDS: LORazepam 2 MG/ML VIAL IVP PRN ×3 (06:35→22:39)
[2017-10-22 08:00] VITALS: BP_SYST 113
[2017-10-22] MEDS: PANTOPRAZOLE SODIUM 40 MG/VIAL (PROTONIX) IVP SCH ×2 (09:54→20:36)
[2017-10-22] MEDS: PROMETHAZINE HCL 25 MG/ML AMP IVP PRN ×3 (09:56→21:27)
[2017-10-22 10:26] LABS: BASOPHILS # (AUTO) 0.1 K/uL (0.0-0.2); BASOPHILS % (AUTO) 0.6 % (0.0-2.0); EOSINOPHILS # (AUTO) 0.1 K/uL (0.0-0.4); EOSINOPHILS % (AUTO) 0.5 % (0.0-4.0); HEMATOCRIT 49.1 % (36-54); HEMOGLOBIN 16.8 g/dL (14.0-18.0); LYMPHOCYTES # (AUTO) 1.2 K/uL (1.0-5.5); LYMPHOCYTES % (AUTO) 10.6 % (20.5-51.5); MEAN CORPUSCULAR HEMOGLOBIN 32 pg (27-31); MEAN CORPUSCULAR HGB CONC 34 % (32-36); MEAN CORPUSCULAR VOLUME 94 fL (79.0-98.0); MONOCYTES % (AUTO) 9.4 % (1.7-9.3); NEUTROPHILS # (AUTO) 8.7 K/uL (1.8-7.7); NEUTROPHILS % (AUTO) 78.9 % (40.0-70.0); PLATELET COUNT (AUTO) 221 K/uL (130-430); RED BLOOD CELL COUNT(AUTO) 5.24 MIL/uL (4.2-6.2); RED CELL DISTRIBUTION WIDTH 11.5 % (9.0-15.0); WHITE BLOOD COUNT (AUTO) 11.1 K/uL (4.8-10.8)
[2017-10-22 10:32] LABS: CALCIUM 9.2 mg/dL (8.4-11.0); CREATININE 1.35 mg/dL (0.55-1.30); POTASSIUM 3.6 mmol/L (3.5-5.1)
[2017-10-22 10:37] LABS: TOTAL BILIRUBIN 0.7 mg/dL (0.0-1.0)
[2017-10-22 12:00] VITALS: BP_SYST 150
[2017-10-22] MEDS: ACETAMINOPHEN 325 MG TABLET PO PRN (13:55)
[2017-10-22 16:44] VITALS: BP_SYST 152
[2017-10-22 20:00] VITALS: BP_SYST 131
[2017-10-23 00:08] VITALS: BP_SYST 122
[2017-10-23 08:00] VITALS: BP_SYST 128
[2017-10-23] MEDS: PANTOPRAZOLE SODIUM 40 MG/VIAL (PROTONIX) IVP SCH ×2 (08:54→21:39)
[2017-10-23] MEDS: D5NS 1,000 ML IV SCH ×2 (08:54→17:43)
[2017-10-23] MEDS: ONDANSETRON HCL 4 MG/2 ML VIAL IVP PRN (09:01)
[2017-10-23] MEDS: PROMETHAZINE HCL 25 MG/ML AMP IVP PRN ×3 (10:34→21:40)
[2017-10-23] MEDS: LORazepam 2 MG/ML VIAL IVP PRN ×2 (11:48→22:55)
[2017-10-23] MEDS ORDERED: ONDANSETRON HCL 4 MG/2 ML VIAL IVP ONE (12:45)
[2017-10-23 14:09] LABS: CREATININE 1.1 mg/dL (0.55-1.30); POTASSIUM 3.6 mmol/L (3.5-5.1)
[2017-10-23 16:49] VITALS: BP_SYST 149
[2017-10-23 20:00] VITALS: BP_SYST 132
[2017-10-23] MEDS: ERYTHROMYCIN BASE 500 MG TABLET PO SCH (21:39)
[2017-10-23 22:50] VITALS: BP_SYST 130
[2017-10-24] MEDS: D5NS 1,000 ML IV SCH ×3 (00:24→21:12)
[2017-10-24] MEDS: ERYTHROMYCIN BASE 500 MG TABLET PO SCH ×3 (05:46→21:11)
[2017-10-24 08:00] VITALS: BP_SYST 127
[2017-10-24] MEDS: PROMETHAZINE HCL 25 MG/ML AMP IVP PRN (09:03)
[2017-10-24] MEDS: PANTOPRAZOLE SODIUM 40 MG/VIAL (PROTONIX) IVP SCH ×2 (10:01→21:11)
[2017-10-24] MEDS: LORazepam 2 MG/ML VIAL IVP PRN ×2 (10:06→21:11)
[2017-10-24] MEDS ORDERED: NA PHOS,M-B/NA PHOS,DI-BA 118 ML (FLEET ENEMA) RC ONE (11:15)
[2017-10-24 12:12] VITALS: BP_SYST 163
[2017-10-24 16:10] VITALS: BP_SYST 132
[2017-10-24] MEDS: PROCHLORPERAZINE EDISYLATE 10 MG/2 ML VIAL IVP PRN ×2 (18:06→21:11)
[2017-10-24 20:00] VITALS: BP_SYST 112
[2017-10-25 00:02] VITALS: BP_SYST 100
[2017-10-25] MEDS: ERYTHROMYCIN BASE 500 MG TABLET PO SCH (05:20)
[2017-10-25] MEDS: D5NS 1,000 ML IV SCH (05:20)
[2017-10-25] MEDS: PROCHLORPERAZINE EDISYLATE 10 MG/2 ML VIAL IVP PRN (07:51)
[2017-10-25 08:00] VITALS: BP_SYST 131
[2017-10-25 10:43] VITALS: BP_SYST 139
== END 2017-10-25 12:30 | disposition home or self-care (01) | DRG 102 ==
LOC: SED 13:30 → INTOOBSV 14:58 → SMU 14:58 → OBSVTOIN 14:58 → SMU 15:34
PROVIDERS: ADMIT Internal Medicine Hospice and Palliative Medicine; ATTEND Internal Medicine Hospice and Palliative Medicine
DX: G43.A0 Cyclical vomiting, in migraine, not intractable (principal); K85.90 Acute pancreatitis without necrosis or infection, unspecified; G36.0 Neuromyelitis optica [Devic]; F12.90 Cannabis use, unspecified, uncomplicated; E87.6 Hypokalemia; R10.9 Unspecified abdominal pain; F17.200 Nicotine dependence, unspecified, uncomplicated; F90.9 Attention-deficit hyperactivity disorder, unspecified type; Z84.89 Family history of other specified conditions; Z79.899 Other long term (current) drug therapy; Z88.8 Allergy status to other drugs, medicaments and biological substances; Z72.89 Other problems related to lifestyle
CPT/HCPCS: 36415; 70450-TC; 74018; 80048; 80053; 80307; 81000-TC; 83690-TC; 85025; 87081; 96361; 96365; 96366; 96375; 99285; C9113; J0780; J2060; J2270; J2405; J2550; J3480; J7042